=== PATIENT | female | born 1985 | race Caucasian/White ===

== ENCOUNTER → 2016-10-30 | Outpatient (CLI) | payer OTHER ==
--- NOTE | 2016-10-30 23:12 | MR ---
EXAMINATION TYPE: MR shoulder LT wo con DATE OF EXAM: 10/30/2016 5:46 PM COMPARISON: NONE HISTORY: Left Shoulder Pain for 1 year, limited ROM, No known Trauma TECHNIQUE: Multiplanar, multisequence imaging of the left shoulder is performed without contrast. FINDINGS: Rotator Cuff: Intact. No rotator cuff tear. Increased signal within the tendon compatible with tendin osis. Some fluid signal present in the subacromial subdeltoid bursa. Distal acromion somewhat downtur john. Acromioclavicular Joint: Mild arthropathy causing minimal mass effect on the musculotendinous junctio n of supraspinatus. Glenohumeral Joint: Intact. Labrum: No evident tear. Biceps Tendon: The long head of biceps is in normal location within bicipital groove. Small amount of fluid signal present along the tendon. Bone marrow signal: No focal abnormal marrow signal is appreciated. Other: No additional significant abnormality is appreciated. IMPRESSION: Rotator cuff tendinosis. Correlate for impingement. No evident rotator cuff tear.
== END | disposition home or self-care (01) ==
LOC: RADMRIMAIN 16:38
PROVIDERS: ATTEND Family Medicine
DX: M75.102 Unspecified rotator cuff tear or rupture of left shoulder, not specified as traumatic (principal)

== ENCOUNTER → 2016-11-27 | Outpatient (CLI) | payer OTHER ==
--- NOTE | 2016-11-27 12:06 | MR ---
MRI brain with and without contrast HISTORY: Brain tumor, headaches Multiplanar multisequence and postcontrast images through the brain following 15 cc MultiHance IV, co mparison to prior head CT 06 July 2013 There is no restricted diffusion. There is no hemorrhage or hydrocephalus. Brain signal is maintained . Cerebellopontine angles, corpus callosum, pituitary, cervical medullary junction are normal. The or bits show symmetric appearance. There is normal vascular enhancement. Mild inflammatory changes prese nt within the maxillary sinus, ethmoid air cells. IMPRESSION: Mild sinus disease. No acute brain abnormalities evident.
== END | disposition home or self-care (01) ==
LOC: RADMRIMAIN 09:36
PROVIDERS: ATTEND Psychiatry & Neurology Neurology
DX: D49.6 Neoplasm of unspecified behavior of brain (principal)
CPT/HCPCS: 70553; A9577

== ENCOUNTER → 2017-12-14 | Day surgery (SDC) | payer OTHER ==
[2017-12-11 12:39] VITALS: BMI 25.0
[~2017-12-14] MED LIST: BUPIVACAINE (PF) 0.25% 30 ML VIAL SQ ONE; DEXAMETHASONE SOD PHOSPHATE 10 MG/ML 1 ML VIAL IV ONE; GLYCOPYRROLATE 0.2 MG/ML 2 ML VIAL ONE; HEPARIN SODIUM,PORCINE 5,000 UNIT/ML 1 ML VIAL SQ ONE; HYDROcodone/APAP 5-325MG 1 EACH TAB PO ONE; HYDROcodone/APAP 5-325MG 1 EACH TAB PO PRN; LACTATED RINGERS 1,000 ML IV ONE; LACTATED RINGERS 1,000 ML IV SCH; LIDOCAINE 1% 20 ML VIAL (10MG/ML) FOR IV START INTRADERMA ONE; LIDOCAINE 1% INJ 10MG/ML (20 ML MDV) ONE; MIDAZOLAM 2 MG/2 ML VIAL IV PRN; MIDAZOLAM 2 MG/2 ML VIAL ONE; MORPHINE SULFATE 4 MG/ML SYRINGE IV PRN; NALOXONE 0.4 MG/ML 1 ML VIAL IV PRN; NEOSTIGMINE 1 MG/ML 10 ML VIAL ONE; ONDANSETRON 4 MG/2 ML VIAL IVP ONE; PROPOFOL 10 MG/ML 20 ML VIAL IV ONE; ROCURONIUM BROMIDE 10 MG/ML 10 ML VIAL IV ONE; SCOPOLAMINE 1.5MG/72HR PATCH TRANSDERM ONE; SUCCINYLCHOLINE CHLORIDE 100 MG/5 ML SYR IV ONE; ceFAZolin IN SWFI 2 GM/20 ML SYRINGE IVP ONE; fentaNYL (PF) 50 MCG/ML 2 ML AMP ONE
[2017-12-14 11:00] VITALS: RESP 16
[2017-12-14 14:34] VITALS: TEMP 97
--- NOTE | 2017-12-14 15:05 | P.PCN ---
Date of Procedure: 12/14/17 Procedure(s) Performed: PREOPERATIVE DIAGNOSIS: Incarcerated Ventral hernia POSTOPERATIVE DIAGNOSIS: Incarcerated ventral and umbilical hernia PROCEDURE: Repair incarcerated ventral and umbilical hernia SURGEON: Tasha EBL: Minimal ANESTHESIA: General COMPLICATIONS: None OPERATIVE PROCEDURE: The patient was placed in the operating table in the supine position. The abdomen was prepped and draped in usual sterile fashion. A vertical supraumbilical incision was made using the scalpel. Dissection through the subcutaneous fat took place using electrocautery. The patient's main hernia was easily identified and dissected down to the level of the fascia. The defect in the fascia measured approximately 7 mm in size. As the fascia was inspected circumferentially 3 additional fascial defects were identified. One at the base of the umbilicus measuring 6 mm 1 superior to the umbilicus measuring 5 mm and additional defect superior to that measuring 7 mm. These were all incorporated into one fascial opening. The fascia was debrided and it was quite thin. The pre-peritoneal space was carefully dissected using electrocautery and blunt dissection. Space for the 6.4 cm ventral X mesh was achieved. The mesh was placed beneath the fascia and sutured to the fascia using interrupted 0 Ethibond trans-fascial sutures. The defect was then closed vertically using interrupted [id number] 0 Ethibond sutures. The subcutaneous tissues were reapproximated using inverted 3-0 Vicryl sutures. The umbilicus was tacked back down to the fascia using a 3-0 Vicryl suture. The skin was closed using 4-0 Monocryl sutures. Steri-Strips and sterile dressings were then applied. DISPOSITION: Stable to recovery room
[2017-12-14 15:36] VITALS: BP 102/59; PULSE 74
== END ==
LOC: OR 10:35
PROVIDERS: ATTEND Surgery
DX: K43.6 Other and unspecified ventral hernia with obstruction, without gangrene (principal); K42.0 Umbilical hernia with obstruction, without gangrene; G43.909 Migraine, unspecified, not intractable, without status migrainosus; Z79.899 Other long term (current) drug therapy
CPT/HCPCS: 81025; 88302; 49561; 49587; C1781; J2250; J1644; J1100; J2710; J2405; J2001; J3010; J0330; J2704; J0690

== ENCOUNTER → 2022-01-18 | Outpatient (CLI) | payer OTHER ==
--- NOTE | 2022-01-18 14:56 | FL ---
EXAMINATION TYPE: FL barium swallow w video DATE OF EXAM: 01/18/2022 MODIFIED SWALLOW / DEGLUTITION STUDY CLINICAL HISTORY: Dysphagia. TECHNIQUE: Deglutition study is performed utilizing thin liquid barium, pudding consistency, and bar ium coated cracker. COMPARISON: None available FINDINGS: There is no evidence of laryngeal penetration or aspiration at the time of the study. Total fluoroscopic time 51 seconds. No images on PACS. IMPRESSION: No laryngeal penetration or aspiration. Please refer to speech therapist notes for furthe r details.
== END | disposition home or self-care (01) ==
LOC: RADFLMAIN 10:50
PROVIDERS: ATTEND Family Medicine
DX: R13.10 Dysphagia, unspecified (principal)
CPT/HCPCS: 74230